=== PATIENT | male | born 1945 | race Caucasian/White ===

== ENCOUNTER 2016-11-02 05:59 | Day surgery (SDC) | payer BC, MEDICARE ==
[2016-10-29 12:37] VITALS: BMI 20.9
[2016-11-02 06:52] LABS: Aty Lym Flag Slight; CH 35.4; CHCM 35.4; HCT 46.6 % (39.0-53.0); HDW 2.47; HGB 16.1 gm/dL (13.0-17.5); MCH 34.8 pg (25.0-35.0); MCHC 34.6 g/dL (31.0-37.0); MCV 100.6 fL (80.0-100.0); Mean Platelet Volume 9.1; RBC 4.63 m/uL (4.30-5.90); RDW 12.9 % (11.5-15.5); WBC (Perox) 4.75
[2016-11-02 07:23] LABS: Add Differential Manual Differential
[2016-11-02] MEDS ORDERED: HYDROmorphone (PF) 1 MG/ML ONE (07:24)
[2016-11-02] MEDS ORDERED: ePHEDrine 50 MG/ML 1 ML AMP ONE (07:24)
[2016-11-02] MEDS ORDERED: LABETALOL 5 MG/ML VIAL MDV ONE (07:24)
[2016-11-02] MEDS ORDERED: MIDAZOLAM 2 MG/2 ML VIAL ONE (07:24)
[2016-11-02] MEDS ORDERED: PROPOFOL 10 MG/ML 20 ML VIAL IV ONE (07:24)
[2016-11-02] MEDS ORDERED: PHENYLEPHRINE-0.9% NACL SYG 1 MG/10 ML SYRINGE ONE (07:24)
[2016-11-02] MEDS ORDERED: HEPARIN SODIUM 1,000 UNIT/ML VIAL ONE (07:24)
[2016-11-02] MEDS ORDERED: fentaNYL (PF) 50 MCG/ML 2 ML AMP ONE (07:24)
[2016-11-02] MEDS ORDERED: SUCCINYLCHOLINE CHLORIDE 100 MG/5 ML SYR IV ONE (07:24)
[2016-11-02] MEDS ORDERED: HEPARIN SODIUM,PORCINE 5,000 UNIT/ML 1 ML VIAL ONE (07:24)
[2016-11-02] MEDS ORDERED: PROTAMINE SULFATE 10 MG/ML 5 ML VIAL IV ONE ×2 (07:24→10:55)
[2016-11-02 07:26] LABS: Nucleated Red Blood Cells 0 /100 WBC (0-0); Total Cells Counted 100
[2016-11-02 07:28] LABS: Large Platelets Present
[2016-11-02 07:29] LABS: Manual Review Performed
[2016-11-02] MEDS ORDERED: LIDOCAINE 2% INJ 20 MG/ML SQ ONE ×2 (08:03→08:05)
[2016-11-02] MEDS ORDERED: HEPARIN SODIUM,PORCINE/D5W PMX 25,000 UNIT in DEXTROSE/WATER 1 500ML.BAG IV ONE (08:15)
[2016-11-02] MEDS: SODIUM CHLORIDE 0.9% 1,000 ML IV SCH (11:02)
[2016-11-02] MEDS ORDERED: LACTATED RINGERS 1,000 ML IV ONE (11:02)
[2016-11-02] MEDS ORDERED: IOHEXOL 350 MG/ML 100 ML BOTTLE INJ ONE (11:04)
[2016-11-02] MEDS ORDERED: ACETAMINOPHEN IV (For NPO) 1,000 MG in EMPTY BAG 1 BAG IVPB ONE (11:37)
[2016-11-02] MEDS ORDERED: HYDROcodone/APAP 5-325MG 1 EACH TAB PO PRN (11:37)
--- NOTE | 2016-11-02 12:01 | P.PCN ---
Preoperative Diagnosis: Procedures performed ([facility] - CRYO Ablation) Invasive hemodynamic monitoring while general anesthesia, right femoral arterial line for monitoring and sampling Comprehensive diagnostic EP study with attempted arrhythmia induction CS pacing and recording Drug infusion Catheter the mapping of the tachycardia (NOT 3D mapping) Intracardiac echocardiography Pulmonary vein isolation with transseptal and comprehensive EPS, 10096 Electrical cardioversion, synchronized electrical cardioversion to sinus rhythm Procedure details Patient was brought to the EP lab in a fasting state. Written informed consent was obtained prior to the procedure. Procedure performed under general anesthesia After initial muscle relaxant use, muscle relaxants were not given thereafter in order to assess phrenic nerve during procedure Patient prepped and draped as per protocol Full cryo-set up with standard preparation of the cryoablation tools done Femoral Venous access obtained on the right and left groins Sheaths placed Diagnostic catheters for the high right atrium, phrenic nerve stimulation and pacing, His bundle, RV and coronary sinus placed Intracardiac echo catheter placed Long sheath placed in the right atrium Left and right transseptal catheterization performed under intracardiac echo guidance Intravenous heparin with aCT above 300 Later, catheter positioning and balloon positioning under intracardiac echo Baseline measurements Sinus cycle length 847 ms, QRS 97 ms, QT 4:30 milliseconds. AH 75, HV 50 Sinus node recovery times at 600 504 100 ms were 1070, 1078, 980 ms Comprehensive diagnostic EP study with drug infusion Atrial pacing performed from the high right atrium and the coronary sinus AV node Wenckebach block 360 him a VA Wenckebach block 390, AV node Wenckebach block from the coronary sinus 360 Transseptal catheterization performed RA pressure elevated at 15/7/11 LA pressure is awaited at 29/7/16 Transseptal catheterization performed with standard sheath. The cryoablation sheath was then placed with an over the wire exchange without any acute complications. All 4 pulmonary veins were isolated in the following sequence: Left superior followed by left inferior followed by right superior followed by right inferior The cryo-ablation balloon was placed at the os of each vein 1.5 mL of IV dye was injected to confirm an occluded vein Goal during cryoablation was to achieve -30C in the first 30 seconds. If not the balloon was repositioned to obtain this result After completion of Cryoblation with durations from 180-240 seconds, entrance block was confirmed with the Attain circular catheter in a roving fashion around the antrum of the pulmonary veins Phrenic nerve pacing was performed from the SVC, right innominate vein area and diaphragm voltage was monitored as well as manually Left superior pulmonary vein First cryoablation Duration of cryoablation lesion 180 seconds -30C achieved at 32 -40C achieved at 38 Minimum temperature achieved -52 Thaw time 22 Vein isolated yes Second cryoablation Duration of cryoablation lesion 120 -30C achieved at 24 -40C achieved at 33 Minimum temperature achieved minus 51 Thaw time17 Vein isolated yes Left inferior pulmonary vein First cryoablation Duration of cryoablation lesion 180 -30C achieved at 28 -40C achieved at 43 Minimum temperature achieved minus 51 Thaw time 12 Vein isolated yes Second cryoablation Duration of cryoablation lesion 120 -30C achieved at 27 -40C achieveFirst cryoablation 47 Minimum temperature achieved minus 42 Thaw time 10 Vein isolated yes Lowest temperature achieved on the CIRCA catheter was 24.8C Right superior pulmonary vein, during phrenic nerve pacing Second cryoablation Duration of cryoablation lesion 120 -30C achieved at 26 -40C achieved at 41 Minimum temperature achieved -51 Thaw time 18 Vein isolated First cryoablation Duration of cryoablation lesion on 180 -30C achieved at 26 -40C achieved at 40 Minimum temperature achieved -53 Thaw time 14 Vein isolated in 60 seconds Right inferior pulmonary vein, during phrenic nerve pacing First cryoablation Duration of cryoablation lesion 180 -30C achieved at 44 -40C achieved at Minimum temperature achieved -37C Thaw time 10 seconds Vein isolated yes Second cryoablation Duration of cryoablation lesion 120 seconds -30C achieved at 47 -40C achieved at 100 Minimum temperature achieved -40 Thaw time Vein isolated yes At the end of the procedure the Achieve catheter was once again used to check for entrance block Phrenic nerve stimulation was performed to confirm diaphragmatic stimulation the end of the procedure Cine fluoroscopy was performed at the very end of the procedure to confirm movement of both diaphragms with inspiration and expiration At the end of the procedure the patient was extubated Heparin was reversed Venous sheaths were removed and hemostasis assured Result Successful pulmonary vein isolation using cryo-ablation Complete entrance block in all 4 veins confirmed No evidence for phrenic nerve injury
[2016-11-02] MEDS ORDERED: FLECAINIDE 50 MG TAB PO SCH (12:15)
[2016-11-02] MEDS ORDERED: ACETAMINOPHEN IV (For NPO) 1,000 MG/100 ML VIAL IVPB ONE (12:19)
[2016-11-02 14:24] LABS: Anion Gap 8 mmol/L; Blood Urea Nitrogen 21 mg/dL (9-20); Calcium 9.4 mg/dL (8.4-10.2); Carbon Dioxide 26 mmol/L (22-30); Chloride 107 mmol/L (98-107); Glucose 87 mg/dL (74-99); Non-African American GFR(MDRD) >60 (>60 ml/min/1.73 sqM); Sodium 141 mmol/L (137-145)
[2016-11-02 14:26] LABS: Potassium 4.6 mmol/L (3.5-5.1)
[2016-11-02] MEDS: LACTATED RINGERS 1,000 ML IV SCH (15:20)
[2016-11-02] MEDS: FLECAINIDE 50 MG TAB PO SCH (17:40)
[2016-11-02] MEDS ORDERED: ACETAMINOPHEN TAB 325 MG TAB PO PRN (18:00)
[2016-11-02] MEDS: APIXABAN 5 MG TAB PO SCH (20:13)
[2016-11-03 00:11] VITALS: RESP 16
[2016-11-03] MEDS: LACTATED RINGERS 1,000 ML IV SCH (02:55)
[2016-11-03] MEDS: SODIUM CHLORIDE 0.9% 1,000 ML IV SCH (02:56)
[2016-11-03] MEDS: FLECAINIDE 50 MG TAB PO SCH (06:06)
[2016-11-03] MEDS: APIXABAN 5 MG TAB PO SCH (08:10)
[2016-11-03] MEDS ORDERED: ATORVASTATIN 10 MG TAB PO SCH (09:00)
[2016-11-03 12:47] VITALS: BP 120/80; PULSE 85; TEMP 98.1
== END 2016-11-03 13:47 | disposition home or self-care (01) ==
LOC: CATHEP 05:59 → 6SEL 10:54 → CATHEP 11-03 13:47
PROVIDERS: ATTEND Internal Medicine Clinical Cardiac Electrophysiology
DX: I48.0 Paroxysmal atrial fibrillation (principal); I49.5 Sick sinus syndrome; R94.31 Abnormal electrocardiogram [ECG] [EKG]; E78.5 Hyperlipidemia, unspecified; I10 Essential (primary) hypertension; Z79.01 Long term (current) use of anticoagulants; Z79.899 Other long term (current) drug therapy; Z88.0 Allergy status to penicillin; Z87.891 Personal history of nicotine dependence
CPT/HCPCS: 92960; 93623; 93662; 93609; 93656; 80048; 85025; C1894 ×3; C1769 ×2; C1730 ×4; C1759; C1893; C1733; C1766; J2001; J2250; J2720; J1644 ×3; Q9967; J3010; J1170; J0131; J2370; J0330; J2704

== ENCOUNTER 2016-11-03 16:32 | Observation (INO) | payer MEDICARE ==
[2016-11-03] MEDS ORDERED: FAMOTIDINE 20 MG/2 ML VIAL IV STA (17:28)
[2016-11-03] MEDS ORDERED: SODIUM CHLORIDE 0.9% 1,000 ML IV STA (17:29)
--- NOTE | 2016-11-03 17:32 | ED ---
Chest Pain HPI - General Chief Complaint: Chest Pain Stated Complaint: Chest Pain Time Seen by Provider: 11/03/16 17:00 Source: patient, RN notes reviewed Mode of arrival: wheelchair Limitations: no limitations - History of Present Illness Initial Comments: This is a 71-year-old male who had a cardiac ablation done yesterday for atrial fibrillation who presents with complaints of chest pain. He states it does increase with movement and deep breathing he denies any fevers chills or sweats he states it was 10/10 now it's a 10. He did talk to Dr. Carney who did instruct him to come the emergency department. Patient states the ablation was successful. Patient was to have an EKG echocardiogram and be admitted started on Pepcid and cold to seen. He denies any other complaints at this time MD Complaint: chest pain - Related Data Home Medications Medication Instructions Recorded Confirmed Apixaban [Eliquis] 5 mg PO BID 10/29/16 11/03/16 Multivit-Min/FA/Lycopen/Lutein 1 tab PO DAILY 10/29/16 11/03/16 [Centrum Silver Men Tablet] Simvastatin [Zocor] 20 mg PO DAILY 10/29/16 11/03/16 Previous Rx's Medication Instructions Recorded Atenolol 25 mg PO DAILY #1 tablet 11/03/16 Flecainide [Tambocor] 100 mg PO Q12HR #1 tablet 11/03/16 Allergies Allergy/AdvReac Type Severity Reaction Status Date / Time Penicillins Allergy Severe Swelling Verified 11/03/16 18:02 Review of Systems ROS Statement: Those systems with pertinent positive or pertinent negative responses have been documented in the HPI. ROS Other: All systems not noted in ROS Statement are negative. EKG Findings - EKG Results: EKG: interpreted by DANNY, sinus rhythm (Sinus rhythm rate 94. Interval 200 QRS duration 92 QT/QTC of 340/[address]-T wave changes) Past Medical History Past Medical History: Hyperlipidemia, Hypertension Additional Past Medical History / Comment(s): "Irregular heart beat" Hx precancerous cells on face. af ablation History of Any Multi-Drug Resistant Organisms: None Reported Past Surgical History: Ablation Past Anesthesia/Blood Transfusion Reactions: No Reported Reaction Additional Past Anesthesia/Blood Transfusion Reaction / Comment(s): "I have never had anesthesia" Past Psychological History: No Psychological Hx Reported Smoking Status: Former smoker Past Alcohol Use History: Occasional Additional Past Alcohol Use History / Comment(s): Smoked as a teenager. Past Drug Use History: None Reported - Past Family History Mother Family Medical History: Cancer General Exam - General Exam Comments Initial Comments: This is a well-developed well-nourished awake alert oriented times 3 male Limitations: no limitations General appearance: alert, anxious Head exam: Present: atraumatic, normocephalic, normal inspection Eye exam: Present: normal appearance, PERRL, EOMI. Absent: scleral icterus, conjunctival injection, periorbital swelling ENT exam: Present: normal exam, mucous membranes moist Neck exam: Present: normal inspection. Absent: tenderness, meningismus, lymphadenopathy Respiratory exam: Present: normal lung sounds bilaterally. Absent: respiratory distress, wheezes, rales, rhonchi, stridor Cardiovascular Exam: Present: regular rate, normal rhythm, normal heart sounds. Absent: systolic murmur, diastolic murmur, rubs, gallop, clicks GI/Abdominal exam: Present: soft, normal bowel sounds. Absent: distended, tenderness, guarding, rebound, rigid Extremities exam: Present: full ROM, normal capillary refill, other (The cath site in the right upper extremity demonstrates no evidence of infection or dehiscence). Absent: tenderness, pedal edema, joint swelling, calf tenderness Back exam: Present: normal inspection Neurological exam: Present: alert, oriented X3, CN II-XII intact Psychiatric exam: Present: normal affect, normal mood Skin exam: Present: warm, dry, intact, normal color. Absent: rash Course Vital Signs 11/03/16 11/03/16 11/03/16 16:40 17:42 18:59 Temperature 99.1 F 100.9 F H Pulse Rate 73 96 Respiratory 18 14 16 Rate Blood Pressure 178/116 176/98 167/107 O2 Sat by Pulse 96 98 99 Oximetry 11/03/16 19:12 Temperature Pulse Rate 96 Respiratory 18 Rate Blood Pressure 183/118 O2 Sat by Pulse 99 Oximetry Chest Pain MDM - [facility] Patient is feeling somewhat improved after the cold to seen. The pain is down from a 10 to a 6/10 patient will be admitted as per Dr. Singh with echocardiogram to be done. X-ray shows no evidence of acute findings. Disposition Clinical Impression: Pleurisy, Febrile, History of cardiac radiofrequency ablation, Atypical chest pain Disposition: ADMITTED IP TO THIS HOSP Condition: Stable
[2016-11-03] MEDS: COLCHICINE 0.6 MG TAB PO SCH (17:53)
[2016-11-03 17:56] LABS: Basophils % (A) 0 %; CH 35.7; CHCM 35.5; Eosinophils % (A) 0 %; HDW 2.48; HGB 15.3 gm/dL (13.0-17.5); Luc # (Auto) 0.14; Luc % (Auto) 1; Lymphocytes # (A) 0.6 k/uL (1.0-4.8); Lymphocytes % (A) 4 %; MCHC 34.7 g/dL (31.0-37.0); MCV 101.1 fL (80.0-100.0); Mean Platelet Volume 9.2; Monocytes # (A) 0.8 k/uL (0-1.0); Monocytes % (A) 5 %; Neutrophils # (A) 13.9 k/uL (1.3-7.7); Neutrophils % (A) 90 %; RBC 4.36 m/uL (4.30-5.90); RDW 12.7 % (11.5-15.5); WBC 15.4 k/uL (3.8-10.6); WBC (Perox) 14.64
--- NOTE | 2016-11-03 18:07 | XR ---
EXAMINATION TYPE: XR chest 2V DATE OF EXAM: 11/03/2016 5:59 PM COMPARISON: 03/24/2013 HISTORY: Cough and chest pain TECHNIQUE: Frontal and lateral views of the chest are obtained. FINDINGS: Heart and mediastinum are normal. There is slight blunting of left costophrenic angle. The re are no hilar masses. There are chest leads. Bony thorax appears intact. IMPRESSION: There is mild pleural reaction at the lateral left lung base. This appears increased com pared to old exam. Normal heart.
[2016-11-03 18:14] LABS: ALT 29 U/L (21-72); AST 43 U/L (17-59); Alkaline Phosphatase 58 U/L (38-126); Anion Gap 11 mmol/L; Blood Urea Nitrogen 17 mg/dL (9-20); Calcium 9.7 mg/dL (8.4-10.2); Carbon Dioxide 28 mmol/L (22-30); Chloride 102 mmol/L (98-107); Glucose 119 mg/dL (74-99); Magnesium 2.1 mg/dL (1.6-2.3); Non-African American GFR(MDRD) >60 (>60 ml/min/1.73 sqM); Potassium 3.7 mmol/L (3.5-5.1); Sodium 141 mmol/L (137-145); Total Bilirubin 0.9 mg/dL (0.2-1.3); Total Protein 7.6 g/dL (6.3-8.2)
[2016-11-03] MEDS ORDERED: KETOROLAC 30 MG/ML 1 ML VIAL IVP STA (19:47)
[2016-11-03] MEDS ORDERED: NALOXONE 0.4 MG/ML 1 ML VIAL IV PRN (19:56)
[2016-11-03] MEDS ORDERED: HYDROmorphone 1 MG/ML 1 ML SYRINGE IVP STA (19:59)
[2016-11-03 20:15] LABS: Appearance,Urine Clear (Clear); Bilirubin,Urine Negative (Negative); Glucose,Urine (UA) Negative (Negative); Ketones,Urine 1+ (Negative); Leukocyte Esterase,Urine Negative (Negative); Nitrite,Urine Negative (Negative); PH, Urine 5.5 (5.0-8.0); Protein,Urine Negative (Negative); Specific Gravity,Urine 1.017 (1.001-1.035); UA Billing (MACRO vs. MICRO) CHEM; Urobilinogen,Urine <2.0 mg/dL (<2.0)
[2016-11-03] MEDS ORDERED: LORazepam 2 MG/ML SYRINGE IV STA (20:46)
[2016-11-03] MEDS: FAMOTIDINE 20 MG TAB PO SCH (22:03)
[2016-11-03] MEDS: APIXABAN 5 MG TAB PO SCH (22:05)
[2016-11-03] MEDS: FLECAINIDE 50 MG TAB PO SCH (22:05)
[2016-11-03 22:31] VITALS: BMI 20.9
[2016-11-04] MEDS: COLCHICINE 0.6 MG TAB PO SCH (05:28)
[2016-11-04] MEDS ORDERED: CARVEDILOL 3.125 MG TAB PO SCH (07:45)
[2016-11-04 08:38] LABS: Basophils % (A) 0 %; CH 35.3; CHCM 35.4; Eosinophils # (A) 0.1 k/uL (0-0.7); Eosinophils % (A) 0 %; HCT 39.9 % (39.0-53.0); HDW 2.53; HGB 14.1 gm/dL (13.0-17.5); Luc # (Auto) 0.27; Luc % (Auto) 2; Lymphocytes % (A) 9 %; MCH 35.4 pg (25.0-35.0); MCHC 35.4 g/dL (31.0-37.0); Monocytes % (A) 9 %; Neutrophils # (A) 8.9 k/uL (1.3-7.7); Neutrophils % (A) 79 %; RBC 3.99 m/uL (4.30-5.90); RDW 12.6 % (11.5-15.5); WBC 11.3 k/uL (3.8-10.6); WBC (Perox) 11.48
[2016-11-04] MEDS ORDERED: ATENOLOL 25 MG TAB PO SCH (09:00)
[2016-11-04] MEDS ORDERED: ATORVASTATIN 10 MG TAB PO SCH (09:00)
[2016-11-04 09:49] VITALS: RESP 18
--- NOTE | 2016-11-04 10:30 | ECHOF ---
Referral Reason:Chest pain post cardiac ablation MEASUREMENTS -------- HEIGHT: 182.9 cm WEIGHT: 70.3 kg BP: 160/97 RVIDd: 3.0 cm (< 3.3) IVSd: 1.1 cm (0.6 - 1.1) LVIDd: 4.6 cm (3.9 - 5.3) LVPWd: 1.0 cm (0.6 - 1.1) IVSs: 1.5 cm LVIDs: 2.7 cm LVPWs: 2.0 cm LA Diam: 3.7 cm (2.7 - 3.8) LAESV Index (A-L): 47.38 ml/m Ao Diam: 3.9 cm (2.0 - 3.7) AV Cusp: 2.7 cm (1.5 - 2.6) MV EXCURSION: 17.245 mm (> 18.000) MV EF SLOPE: 72 mm/s (70 - 150) EPSS: 0.5 cm MV E Orion: 1.16 m/s MV DecT: 178 ms MV A Orion: 1.06 m/s MV E/A Ratio: 1.09 AR PHT: 643 ms RAP: 15.00 mmHg RVSP: 47.98 mmHg FINDINGS -------- Sinus rhythm with extra systolic beats. This was a technically good study. The left ventricular size is normal. Left ventricular wall thickness is normal. Overall left ventricular systolic function is normal with, an EF between 60 - 65 %. The right ventricle is normal in size and function. LA is severely dilated >40 ml/m2 The right atrium is normal in size. Possible PFO Post Radiofrequency Ablation, expected post procedure. The aortic valve is trileaflet and appears structurally normal. There is [id number] aortic regurgitation. The mitral valve leaflets are mildly thickened. Mild mitral annular calcification present. Moderate mitral regurgitation is present. Moderate tricuspid regurgitation present. There is moderate pulmonary hypertension. The right ventricular systolic pressure, as measured by Doppler, is 47.98mmHg. Trace/mild (physiologic) pulmonic regurgitation. The aortic root is mildy dilated. 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 The inferior vena cava is dilated with poor inspiratory collapse which is consistent with estimated right atrial pressure of 15 mmHg. There is no pericardial effusion. CONCLUSIONS -------- 1. Sinus rhythm with extra systolic beats. 2. There is [id number] aortic regurgitation. 3. The mitral valve leaflets are mildly thickened. 4. Mild mitral annular calcification present. 5. Moderate mitral regurgitation is present. 6. Moderate tricuspid regurgitation present. 7. There is moderate pulmonary hypertension. 8. The right ventricular systolic pressure, as measured by Doppler, is 47.98mmHg. 9. Trace/mild (physiologic) pulmonic regurgitation. 10. The aortic root is mildy dilated. 11. 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 12. This was a technically good study. 13. The inferior vena cava is dilated with poor inspiratory collapse which is consistent with estimated right atrial pressure of 15 mmHg. 14. There is no pericardial effusion. 15. The left ventricular size is normal. 16. Left ventricular wall thickness is normal. 17. Overall left ventricular systolic function is normal with, an EF between 60 - 65 %. 18. The right ventricle is normal in size and function. 19. LA is severely dilated >40 ml/m2 20. The right atrium is normal in size. 21. The aortic valve is trileaflet and appears structurally normal. PHOTO SPECIALIST: Sunita Stokes RDCS
[2016-11-04] MEDS: APIXABAN 5 MG TAB PO SCH (10:46)
[2016-11-04] MEDS: FAMOTIDINE 20 MG TAB PO SCH (10:46)
[2016-11-04] MEDS: FLECAINIDE 50 MG TAB PO SCH (10:47)
[2016-11-04] MEDS ORDERED: MULTIVITAMINS, THERA 1 EACH TAB PO SCH (12:00)
--- NOTE | 2016-11-04 12:09 | HP ---
DATE OF ADMISSION: Mr. Ramos is a 71-year-old male patient who was discharged yesterday after pulmonary vein isolation with cryoablation. He was pain free when I saw him yesterday morning and by the time he was discharged he was having very mild discomfort in the chest but was stable and left before 12 noon. Subsequently I got a call from him stating that he was having severe chest pain, shortness of breath and therefore he was sent to the emergency room for evaluation and possible admission. He was seen by Dr. Tavera and he was admitted for evaluation of pleuritic chest discomfort. The patient was complaining of severe discomfort when he took a deep breath to the point where he could not even breathe properly. He was short of breath and was quite uncomfortable. In addition, his blood pressure was quite high. His initial blood pressure upon admission here was 160/97 mmHg, 170/100 mmHg. He was in sinus rhythm upon arrival. His EKG showed sinus mechanism. Heart rate is 94 beats a minute. No definite ST segment abnormalities. His chest x-ray showed mild pleural reaction of the left lung base. No opacification of the lung quinteros. He denied any dizziness, palpitations. He was complaining of unable to breathe and taking and felt he was short of breath and did not get enough oxygen and was unable to take a deep breath because of severe pain. His medications included Eliquis, multivitamin, Zocor, atenolol and flecainide. Allergies to PENICILLIN. REVIEW OF SYSTEMS: No fever, chills, rigors. No cough or expectoration. No nausea, vomiting, or diarrhea. No hematuria or dysuria. No strokes or seizures. No skin lesions or musculoskeletal complaints. Past medical history of dyslipidemia and elevated blood pressure ( ) hypertension and persistent atrial fibrillation resistant to drug therapy, status post successful cryoablation of the pulmonary veins and status post cardioversion and initiation of flecainide 100 mg twice daily prior to discharge. SOCIAL HISTORY: Former smoker and history of alcohol use in the past. On exam this morning, his pain was much better. He was able to take a deep breath in. He was complaining of mild discomfort, but a lot better than yesterday. He was breathing more comfortably. He is lying comfortably in bed. His blood pressure is elevated at 149/104 mmHg, 160/97 mmHg and temperature was 99.1 degrees Fahrenheit. Head and neck examination is normal. Breath sounds are normal. No rhonchi. No crackles. Heart sounds S1, S2 are normal. I do not appreciate a rub. Abdomen is soft, nontender. Extremities are warm, no edema. His echo was reviewed, report was reviewed, and it does not show any pericardial effusion, a PFO is noted. He had transseptal procedure done the day before yesterday. A 15 [place] sheath was placed across the interatrial septum to access the left atrium. Labs are reviewed. His white count yesterday was 15.4. Hemoglobin is normal. Today the white count is 11.3. Electrolytes are normal. IMPRESSION: 1. Pleuritic chest discomfort, severe with shortness of breath and inability to take a breath. Patient was very uncomfortable yesterday and was admitted by in the emergency room. This morning he is much better on colchicine. He did get Dilaudid yesterday, but only a single dose. 2. Persistent atrial fibrillation, status post cryoablation and on flecainide now. 3. Hypertension. 4. Dyslipidemia. SUGGEST: 1. Colchicine 0.6 mg p.o. b.i.d. 2. Continue anticoagulation. 3. Continue flecainide. 4. Switch from atenolol to carvedilol and consider starting losartan 25 mg p.o. daily. He will follow up with Dr. Mata in about a week. I will also plan on CT of the chest with contrast to evaluate posterior mediastinum and the esophagus, but after about a week or so to make sure there is no injury to the esophagus. The lowest temperature recorded ( ) temperature monitoring catheter was 24.8 degrees Celsius when ablating the left-sided veins. FURTHER UPDATE: If his pain is much better this evening, I will discharge him today. This note will also serve as a discharge note and I will write an update at the time of discharge.
[2016-11-04 12:28] VITALS: BP 139/94
[2016-11-04 16:27] VITALS: PULSE 86; TEMP 99
--- NOTE | 2016-11-04 16:28 | P.DS ---
Providers Date of admission: 11/03/16 19:56 Attending physician: Arya Singh Primary care physician: Romulo Bryant [facility] Course: Patient is doing well. His pain is almost 90% better. He is able to breathe better. He is ablating the hallways. No groin problems Plan Discharge home Home blood pressure monitoring Colchicine Pepcid Carvedilol Anticoagulation Stop atenolol CT chest with contrast in about a week Follow-up with Dr. Lao the next day Patient Condition at Discharge: Stable Plan - Discharge Summary Discharge Medication List Apixaban [Eliquis] 5 mg PO BID 10/29/16 [History] Multivit-Min/FA/Lycopen/Lutein [Centrum Silver Men Tablet] 1 tab PO DAILY [History] Simvastatin [Zocor] 20 mg PO DAILY 10/29/16 [History] Atenolol 25 mg PO DAILY #1 tablet 11/03/16 [Rx] Flecainide [Tambocor] 100 mg PO Q12HR #1 tablet 11/03/16 [Rx] Follow up Appointment(s)/Referral(s): Romulo Benjamin MD [Primary Care Provider] - 1-2 days Activity/Diet/Wound Care/Special Instructions: Stop atenolol Start carvedilol 3.125 mg twice daily Home blood pressure monitor Computed tomography scan with contrast one day prior to seeing Dr. Lao
== END 2016-11-04 16:55 | disposition home or self-care (01) ==
LOC: EC 16:32 → 3OBS 19:56
PROVIDERS: ADMIT Internal Medicine Clinical Cardiac Electrophysiology; ATTEND Internal Medicine Clinical Cardiac Electrophysiology
DX: R07.81 Pleurodynia (principal); R06.02 Shortness of breath; R07.89 Other chest pain; E78.5 Hyperlipidemia, unspecified; I10 Essential (primary) hypertension; I48.1 Persistent atrial fibrillation; Z79.899 Other long term (current) drug therapy; Z79.01 Long term (current) use of anticoagulants; Z88.0 Allergy status to penicillin; Z87.891 Personal history of nicotine dependence
CPT/HCPCS: 96361 ×3; 96374; 96375; 99285; 36415; 93005; 93306; 80053; 83735; 85025 ×2; 81003; 71020; G0378 ×2; J2060; J1885; J1170

== ENCOUNTER 2016-11-11 17:04 | Observation (INO) | payer MEDICARE ==
[2016-11-11] MEDS ORDERED: ACETAMINOPHEN TAB 500 MG TAB PO STA (17:41)
[2016-11-11] MEDS ORDERED: SODIUM CHLORIDE 0.9% 1,000 ML IV STA ×2 (17:41)
[2016-11-11] MEDS ORDERED: IBUPROFEN 600 MG TAB PO STA (17:41)
--- NOTE | 2016-11-11 17:48 | ED ---
General Adult HPI - General Source: patient, RN notes reviewed, old records reviewed Mode of arrival: ambulatory Limitations: no limitations <Mo Rdz - Last Filed: 11/11/16 18:58> <Rush Tinoco - Last Filed: 11/11/16 21:53> - General Chief complaint: Recheck/Abnormal Lab/Rx Stated complaint: LIGHTHEADED, LOW BLOOD PRESSURE, PULSE HIGH Time Seen by Provider: 11/11/16 17:41 - History of Present Illness Initial comments: This is a 71-year-old male to the ER for evaluation of lightheadedness dizziness weakness, fever. Patient sates his heart rate and possible elevated. Feeling weak lightheaded and dizzy. Feels like he might pass out. No chest pain. No headache. No abdominal pain. No nausea vomiting or diarrhea. Patient has a complicated recent medical history where he went to ablation for A. fib with RVR. Since then he has not been feeling well from symptoms such as pain nausea weakness. Patient has been noted for left calf he feels like he is going in and out of A. fib and the problem is illegals and A. fib he is having significantly low blood pressures. These episodes of very symptomatic and he feels like he is given a passout. Patient's hospital record from low-grade fevers the last 2 weeks. He denies significant sore throat this time nausea vomiting or diarrhea, no abdominal pain. (Mo Rdz) - Related Data Home Medications Medication Instructions Recorded Confirmed Apixaban [Eliquis] 5 mg PO BID 10/29/16 11/11/16 Multivit-Min/FA/Lycopen/Lutein 1 tab PO DAILY 10/29/16 11/11/16 [Centrum Silver Men Tablet] Simvastatin [Zocor] 20 mg PO HS 10/29/16 11/11/16 Carvedilol [Coreg] 3.125 mg PO BID 11/04/16 11/11/16 Colchicine [Colcrys] 0.6 mg PO BID 11/04/16 11/11/16 Famotidine [Pepcid] 20 mg PO DAILY 11/04/16 11/11/16 Previous Rx's Medication Instructions Recorded Flecainide [Tambocor] 100 mg PO Q12HR #1 tablet 11/03/16 Allergies Allergy/AdvReac Type Severity Reaction Status Date / Time Penicillins Allergy Severe Swelling Verified 11/11/16 18:57 Review of Systems ROS Other: All systems not noted in ROS Statement are negative. <Mo Rdz - Last Filed: 11/11/16 18:58> ROS Other: All systems not noted in ROS Statement are negative. <Rush Tinoco - Last Filed: 11/11/16 21:53> ROS Statement: Those systems with pertinent positive or pertinent negative responses have been documented in the HPI. Past Medical History Past Medical History: Atrial Fibrillation, Hyperlipidemia, Hypertension Additional Past Medical History / Comment(s): Hx precancerous cells on face. ablation on 11/02/2016 for a fib History of Any Multi-Drug Resistant Organisms: None Reported Past Surgical History: Ablation Past Anesthesia/Blood Transfusion Reactions: No Reported Reaction Additional Past Anesthesia/Blood Transfusion Reaction / Comment(s): "I have never had anesthesia" Past Psychological History: No Psychological Hx Reported Smoking Status: Former smoker Past Alcohol Use History: Occasional Additional Past Alcohol Use History / Comment(s): Smoked as a teenager. Past Drug Use History: None Reported - Past Family History Mother Family Medical History: Cancer <Mo Rdz - Last Filed: 11/11/16 18:58> General Exam Limitations: no limitations General appearance: alert, in no apparent distress, anxious Head exam: Present: atraumatic, normocephalic, normal inspection Eye exam: Present: normal appearance, PERRL, EOMI. Absent: scleral icterus, conjunctival injection, periorbital swelling ENT exam: Present: normal exam, mucous membranes moist Neck exam: Present: normal inspection. Absent: tenderness, meningismus, lymphadenopathy Respiratory exam: Present: normal lung sounds bilaterally. Absent: respiratory distress, wheezes, rales, rhonchi, stridor Cardiovascular Exam: Present: regular rate, normal rhythm, normal heart sounds. Absent: systolic murmur, diastolic murmur, rubs, gallop, clicks GI/Abdominal exam: Present: soft, normal bowel sounds. Absent: distended, tenderness, guarding, rebound, rigid Extremities exam: Present: normal inspection, full ROM, normal capillary refill. Absent: tenderness, pedal edema, joint swelling, calf tenderness Back exam: Present: normal inspection Neurological exam: Present: alert, oriented X3, CN II-XII intact Psychiatric exam: Present: normal affect, normal mood Skin exam: Present: warm, dry, intact, normal color. Absent: rash <Mo Rdz - Last Filed: 11/11/16 18:58> EKG Findings - EKG Comments: EKG Findings:: EKG shows normal sinus rhythm rate of 79, para 28, QRS 90, QTC 447 <Mo Rdz - Last Filed: 11/11/16 18:58> Medical Decision Making - Lab Data Result diagrams: 11/11/16 18:15 11/11/16 18:15 <Mo Rdz - Last Filed: 11/11/16 18:58> - Lab Data Result diagrams: 11/11/16 18:15 11/11/16 18:15 <Rush Tinoco - Last Filed: 11/11/16 21:53> - Medical Decision Making Receive this patient has a sign out, pending the studies. I was given the understanding that the patient has been having fevers since his procedure, and that Dr. Weller And wanted him admitted for further evaluation and treatment. ( Rush Tinoco) - Lab Data Lab Results 11/11/16 11/11/16 11/11/16 Range/Units 18:15 18:15 18:15 WBC 13.0 H (3.8-10.6) k/uL RBC 4.36 (4.30-5.90) m/uL Hgb 15.4 (13.0-17.5) gm/dL Hct 42.1 (39.0-53.0) % MCV 96.6 (80.0-100.0) fL MCH 35.3 H (25.0-35.0) pg MCHC 36.5 (31.0-37.0) g/dL RDW 12.3 (11.5-15.5) % Plt Count 280 (150-450) k/uL Neutrophils % 70 % Lymphocytes % 19 % Monocytes % 7 % Eosinophils % 1 % Basophils % 0 % Neutrophils # 9.1 H (1.3-7.7) k/uL Lymphocytes # 2.5 (1.0-4.8) k/uL Monocytes # 0.9 (0-1.0) k/uL Eosinophils # 0.2 (0-0.7) k/uL Basophils # 0.0 (0-0.2) k/uL PT (9.0-12.0) sec INR (<1.1) APTT (22.0-30.0) sec Sodium 138 (137-145) mmol/L Potassium 4.9 (3.5-5.1) mmol/L Chloride 102 (98-107) mmol/L Carbon Dioxide 23 (22-30) mmol/L Anion Gap 13 mmol/L BUN 21 H (9-20) mg/dL Creatinine 0.90 (0.66-1.25) mg/dL Est GFR (MDRD) Af Amer >60 (>60 ml/min/1.73 sqM) Est GFR (MDRD) Non-Af >60 (>60 ml/min/1.73 sqM) Glucose 100 H (74-99) mg/dL Plasma Lactic Acid Kevin (0.7-2.0) mmol/L Calcium 9.7 (8.4-10.2) mg/dL Phosphorus 4.2 (2.5-4.5) mg/dL Magnesium 2.3 (1.6-2.3) mg/dL Total Bilirubin 0.9 (0.2-1.3) mg/dL AST 21 (17-59) U/L ALT 31 (21-72) U/L Alkaline Phosphatase 70 (38-126) U/L Total Creatine Kinase 42 L (55-170) U/L CK-MB (CK-2) 0.5 (0.0-2.4) ng/mL CK-MB (CK-2) Rel Index 1.2 Troponin I <0.012 (0.000-0.034) ng/mL Total Protein 7.2 (6.3-8.2) g/dL Albumin 4.2 (3.5-5.0) g/dL Urine Color Urine Appearance (Clear) Urine pH (5.0-8.0) Ur Specific [place] (1.001-1.035) Urine Protein (Negative) Urine Glucose (UA) (Negative) Urine Ketones (Negative) Urine Blood (Negative) Urine Nitrite (Negative) Urine Bilirubin (Negative) Urine Urobilinogen (<2.0) mg/dL Ur Leukocyte Esterase (Negative) 11/11/16 11/11/16 11/11/16 Range/Units 18:15 18:15 18:45 WBC (3.8-10.6) k/uL RBC (4.30-5.90) m/uL Hgb (13.0-17.5) gm/dL Hct (39.0-53.0) % MCV (80.0-100.0) fL MCH (25.0-35.0) pg MCHC (31.0-37.0) g/dL RDW (11.5-15.5) % Plt Count (150-450) k/uL Neutrophils % % Lymphocytes % % Monocytes % % Eosinophils % % Basophils % % Neutrophils # (1.3-7.7) k/uL Lymphocytes # (1.0-4.8) k/uL Monocytes # (0-1.0) k/uL Eosinophils # (0-0.7) k/uL Basophils # (0-0.2) k/uL PT 10.2 (9.0-12.0) sec INR 1.0 (<1.1) APTT 24.6 (22.0-30.0) sec Sodium (137-145) mmol/L Potassium (3.5-5.1) mmol/L Chloride (98-107) mmol/L Carbon Dioxide (22-30) mmol/L Anion Gap mmol/L BUN (9-20) mg/dL Creatinine (0.66-1.25) mg/dL Est GFR (MDRD) Af Amer (>60 ml/min/1.73 sqM) Est GFR (MDRD) Non-Af (>60 ml/min/1.73 sqM) Glucose (74-99) mg/dL Plasma Lactic Acid Kevin 1.1 (0.7-2.0) mmol/L Calcium (8.4-10.2) mg/dL Phosphorus (2.5-4.5) mg/dL Magnesium (1.6-2.3) mg/dL Total Bilirubin (0.2-1.3) mg/dL AST (17-59) U/L ALT (21-72) U/L Alkaline Phosphatase (38-126) U/L Total Creatine Kinase (55-170) U/L CK-MB (CK-2) (0.0-2.4) ng/mL CK-MB (CK-2) Rel Index Troponin I (0.000-0.034) ng/mL Total Protein (6.3-8.2) g/dL Albumin (3.5-5.0) g/dL Urine Color Light Yellow Urine Appearance Clear (Clear) Urine pH 5.0 (5.0-8.0) Ur Specific [place] 1.002 (1.001-1.035) Urine Protein Negative (Negative) Urine Glucose (UA) Negative (Negative) Urine Ketones Negative (Negative) Urine Blood Negative (Negative) Urine Nitrite Negative (Negative) Urine Bilirubin Negative (Negative) Urine Urobilinogen <2.0 (<2.0) mg/dL Ur Leukocyte Esterase Negative (Negative) Disposition <Mo Rdz - Last Filed: 11/11/16 18:58> <Rush Tinoco - Last Filed: 11/11/16 21:53> Clinical Impression: Fever, Leukocytosis Disposition: ADMITTED IP TO THIS HOSP Condition: Fair Referrals: Romulo Benjamin MD [Primary Care Provider] - 1-2 days
[2016-11-11 18:27] LABS: Basophils % (A) 0 %; CHCM 36.4; Eosinophils # (A) 0.2 k/uL (0-0.7); Eosinophils % (A) 1 %; HCT 42.1 % (39.0-53.0); HDW 2.83; HGB 15.4 gm/dL (13.0-17.5); Luc # (Auto) 0.36; Luc % (Auto) 3; Lymphocytes # (A) 2.5 k/uL (1.0-4.8); Lymphocytes % (A) 19 %; MCH 35.3 pg (25.0-35.0); MCHC 36.5 g/dL (31.0-37.0); MCV 96.6 fL (80.0-100.0); Mean Platelet Volume 8.6; Monocytes # (A) 0.9 k/uL (0-1.0); Monocytes % (A) 7 %; Neutrophils # (A) 9.1 k/uL (1.3-7.7); Neutrophils % (A) 70 %; RBC 4.36 m/uL (4.30-5.90); RDW 12.3 % (11.5-15.5)
[2016-11-11 18:48] LABS: ALT 31 U/L (21-72); AST 21 U/L (17-59); Alkaline Phosphatase 70 U/L (38-126); Anion Gap 13 mmol/L; Calcium 9.7 mg/dL (8.4-10.2); Carbon Dioxide 23 mmol/L (22-30); Chloride 102 mmol/L (98-107); Glucose 100 mg/dL (74-99); Magnesium 2.3 mg/dL (1.6-2.3); Non-African American GFR(MDRD) >60 (>60 ml/min/1.73 sqM); Phosphorous 4.2 mg/dL (2.5-4.5); Sodium 138 mmol/L (137-145); Total Bilirubin 0.9 mg/dL (0.2-1.3); Total Protein 7.2 g/dL (6.3-8.2)
[2016-11-11 18:52] LABS: Blood Urea Nitrogen 21 mg/dL (9-20); Potassium 4.9 mmol/L (3.5-5.1)
[2016-11-11 18:54] LABS: Appearance,Urine Clear (Clear); Bilirubin,Urine Negative (Negative); Glucose,Urine (UA) Negative (Negative); Ketones,Urine Negative (Negative); Leukocyte Esterase,Urine Negative (Negative); Nitrite,Urine Negative (Negative); Protein,Urine Negative (Negative); Specific Gravity,Urine 1.002 (1.001-1.035); UA Billing (MACRO vs. MICRO) CHEM; Urobilinogen,Urine <2.0 mg/dL (<2.0)
[2016-11-11 18:56] LABS: Partial Thromboplastin Time 24.6 sec (22.0-30.0); Prothrombin Time 10.2 sec (9.0-12.0)
[2016-11-11 19:10] LABS: Creatine Kinase MB 0.5 ng/mL (0.0-2.4); Troponin I <0.012 ng/mL (0.000-0.034)
[2016-11-11 19:17] LABS: Creatine Kinase 42 U/L (55-170)
--- NOTE | 2016-11-11 19:55 | XR ---
EXAMINATION TYPE: XR chest 2V DATE OF EXAM: 11/11/2016 7:13 PM COMPARISON: November 03, 2016 HISTORY: Weakness TECHNIQUE: Frontal and lateral views of the chest are obtained. FINDINGS: There is interval resolution of the previously noted blunting of the left lateral costophr enic angle. Only, the lungs appear clear and well expanded bilaterally. The pleural spaces are negati ve. No focal air space opacity, pleural effusion, or pneumothorax. The cardiac silhouette size is wi thin normal limits. The osseous structures are intact. IMPRESSION: NO ACUTE PROCESS.
[2016-11-11] MEDS ORDERED: NALOXONE 0.4 MG/ML 1 ML VIAL IV PRN (21:46)
[2016-11-11] MEDS: SODIUM CHLORIDE 0.9% 1,000 ML IV SCH (21:50)
[2016-11-11 22:36] VITALS: BMI 20.9
[2016-11-12] MEDS: SODIUM CHLORIDE 0.9% 1,000 ML IV SCH (01:11)
[2016-11-12] MEDS: FAMOTIDINE 20 MG TAB PO SCH (08:37)
[2016-11-12] MEDS: APIXABAN 5 MG TAB PO SCH ×2 (08:38→21:23)
[2016-11-12] MEDS: CARVEDILOL 3.125 MG TAB PO SCH ×2 (08:38→17:36)
[2016-11-12] MEDS: FLECAINIDE 50 MG TAB PO SCH ×2 (08:38→21:23)
[2016-11-12] MEDS: COLCHICINE 0.6 MG TAB PO SCH ×2 (08:38→21:22)
[2016-11-12] MEDS ORDERED: RX INFO: IV CONTRAST WAS GIVEN 1 EACH MISC MISCELLANE PRN (14:30)
--- NOTE | 2016-11-12 15:28 | CT ---
EXAMINATION TYPE: CT angio chest DATE OF EXAM: 11/12/2016 3:15 PM COMPARISON: Correlation radiograph 11/11/2016 HISTORY: 71 year-old male history of atrial fibrillation ablation (11-02-16), looking for air in medias tinum. TECHNIQUE: Contiguous axial scanning of the chest performed without and with IV Contrast, patient inj ected with 100 mL of Omnipaque 350. Coronal/sagittal MIP reconstructions performed. 3-D reconstructio ns generated on a dedicated independent workstation. CT DLP: 431.20 mGycm Automated exposure control for dose reduction was used. FINDINGS: The heart is normal size without pericardial effusion. Coronary vessel calcifications are present in remarkable for coronary artery disease. There is aneurysm of the ascending aorta measuring up to 4.8 cm. Mild atherosclerotic arch calcificat ions with conventional arch vessel branching anatomy. Additional borderline aneurysm upper descending thoracic aorta at 3.1 cm. Noncontrast series shows no evidence for acute intramural hematoma. No large central or lobar pulmonary embolus. No thoracic lymphadenopathy or pneumomediastinum. Prominent bands of atelectasis in the lung bases. No consolidation, pneumothorax, or pleural effusion . Visualized upper abdomen shows no gross abnormality. Bones: No osseous destructive process. IMPRESSION: 1. NO EVIDENCE FOR PNEUMOMEDIASTINUM. 2. ASCENDING AORTIC ANEURYSM AT 4.8 CM. APPROPRIATE FOLLOW-UP RECOMMENDED. BORDERLINE ANEURYSM UPPER DESCENDING THORACIC AORTA AT 3.1 CM. 3. PROMINENT BANDS OF BIBASILAR ATELECTASIS.
[2016-11-12] MEDS: MULTIVITAMINS, THERA 1 EACH TAB PO SCH (15:52)
--- NOTE | 2016-11-12 19:33 | HP ---
DATE OF ADMISSION: 11/11/2016 PRESENTING COMPLAINT: Not feeling well. HISTORY OF PRESENTING COMPLAINT: This is a pleasant 71-year-old patient of Dr. Romulo Benjamin who was in the hospital on 11/02/16, underwent pulmonary vein isolation with cryoablation for atrial fibrillation by Dr. Singh. Discharged on 11/03/16. When he went home, patient developed sharp chest pain, could not breathe; was readmitted. Subsequently he was discharged on 11/04. [place] with [place] , did some ( ), was really feeling good. Patient then for the last 2 days was not feeling well. He took his blood pressure and noted it to be down to 91/63. He states he felt a bit ( ) flu-like, just tired, rundown; achiness in the muscles, some runny nose. Hence he decided to come in. No palpitations. REVIEW OF SYSTEMS: CONSTITUTIONAL: Tired, rundown. HEENT: Some nasal congestion. RESPIRATORY: As above. CARDIOVASCULAR: As above. GASTROINTESTINAL: None. GENITOURINARY: None. MUSCULOSKELETAL: Some achiness in the muscles. DERMATOLOGIC: None. HEMATOLOGIC: None. LYMPHATICS: None. PSYCHIATRY: None. NEUROLOGICAL: None. PAST MEDICAL HISTORY: 1. Atrial fibrillation. 2. Hyperlipidemia. 3. Hypertension. 4. Some precancerous cells on the face. PAST SURGICAL HISTORY: Pulmonary vein isolation with cryoablation for atrial flutter/fibrillation on 11/02/16. SOCIAL HISTORY: Does not smoke. . FAMILY HISTORY: Skin cancer. HOME MEDICATIONS: 1. Zocor 20 mg at bedtime. 2. Centrum Silver Men's 1 tablet p.o. daily. 3. Tambocor 100 mg p.o. q.12. 4. Coreg 3.125 mg p.o. b.i.d. 5. Eliquis 5 mg p.o. b.i.d. ALLERGIES: PENICILLIN. On examination, temperature 99.1, pulse 102, respiration 20, blood pressure 122/81, pulse ox 97% on 2 L. GENERAL APPEARANCE: Well built. Sitting up. Comfortable. EYES: Pupils equal. Conjunctivae normal. HEENT: External appearance of nose and ears normal. Oral cavity normal. NECK: JVD not raised. Mass not palpable. RESPIRATORY: Effort normal. Lungs are clear. CARDIOVASCULAR: First and second sounds normal. No edema. ABDOMEN: Soft, nontender. Liver and spleen not palpable. LYMPHATIC: No lymph node palpable in neck or axillae. PSYCHIATRY: Alert and oriented x3. Mood and affect normal. NEUROLOGICAL: Pupils equal. Cranial nerves grossly intact. Power and sensation grossly intact. INVESTIGATIONS: White count 13, hemoglobin 15.4. Potassium 4.9. BUN 21, creatinine 0.90. UA negative. EKG shows normal sinus rhythm, rate controlled. Chest x-ray reported to be negative. ASSESSMENT: 1. This is a patient who recently had pulmonary vein isolation with cryoablation; presented with feeling weak, tired, some achiness in the muscles, slight nasal stuffiness. This could be oral viral syndrome. Patient did record a low blood pressure at home. This could be a wrong reading, given that all of patient's blood pressure readings here are really good, without actually enough fluid supplement. In the meantime will get an opinion from Dr. Singh, who performed an intervention on the patient recently. 2. Essential hypertension. 3. Hyperlipidemia. PLAN: Patient's home medications will be reviewed. Encouraged to take his oral intake. Will keep an eye on patient for 24 hours to make sure things are fine. Spoke to Dr. Singh. He wants to order a CT scan of the chest. Will do the same. Patient is already anticoagulated with Eliquis. Care was discussed with the patient.
[2016-11-12] MEDS ORDERED: ATORVASTATIN 10 MG TAB PO SCH (21:00)
[2016-11-13 04:11] VITALS: RESP 16
[2016-11-13] MEDS: APIXABAN 5 MG TAB PO SCH (08:16)
[2016-11-13] MEDS: CARVEDILOL 3.125 MG TAB PO SCH (08:16)
[2016-11-13] MEDS: FLECAINIDE 50 MG TAB PO SCH (08:16)
[2016-11-13] MEDS: MULTIVITAMINS, THERA 1 EACH TAB PO SCH (08:16)
[2016-11-13] MEDS ORDERED: ACETAMINOPHEN TAB 500 MG TAB PO STA (08:18)
[2016-11-13] MEDS: COLCHICINE 0.6 MG TAB PO SCH (08:53)
[2016-11-13] MEDS: FAMOTIDINE 20 MG TAB PO SCH (08:53)
--- NOTE | 2016-11-13 09:11 | CONS ---
DATE OF CONSULTATION: Edmund Ramos came into the hospital because he was not feeling well. He was dizzy, lightheaded, and found that his blood pressure was low upon admission, his blood pressure was in normal. He thought he was coming down with flu-like syndrome. His white count is mildly elevated, but he is afebrile. REVIEW OF SYSTEMS: No fevers, chills, rigors. He feels tired. He feels rundown and had some nasal congestion. No cough. No expectoration. No nausea, vomiting, or diarrhea. No hematuria or dysuria. No strokes or seizures. His muscles are achy. Past medical history of atrial fibrillation, paroxysmal, status post cryoablation of the pulmonary veins, dyslipidemia, possible hypertension. PAST SURGICAL HISTORY: Cryoablation of the pulmonary veins. SOCIAL HISTORY: Nonsmoker. History of alcohol use in the past has discontinued. Home medications: 1. Zocor. 2. Flecainide 100 mg twice a day. 3. Coreg 3.125 mg twice daily. 4. Eliquis 5 mg twice daily. ALLERGIES TO PENICILLIN. On examination, his blood pressure was normal at 122/81 mmHg on admission. Heart rate is in the normal range. He was in sinus rhythm. Head and neck examination is normal. No JVD, thyromegaly, carotid bruits. Heart sounds are normal. No murmurs or gallops. Breath sounds are clear. No rhonchi. No crackles. ABDOMEN: Soft, nontender. EXTREMITIES: Warm. No edema. A 12-lead ECG showed sinus rhythm with normal cardiac intervals, normal ST segments. Labs are reviewed. Cardiac enzymes are normal. Electrolytes are normal. White count is 13.0. He is afebrile at 98.5 [address]. He underwent CT of the chest that is previously planned as an outpatient but he never was able to get a CT of the chest because he came to the hospital and this did not show any evidence of esophageal injury post ablation. No evidence for pneumomediastinum. He is doing well this morning and should be able to go home today. I instructed him to reduce the dose of carvedilol if he documented low blood pressure once again below 100 mmHg systolic along with symptoms of dizziness. FINAL IMPRESSION: 1. Paroxysmal atrial fibrillation status post cryoablation. 2. Dyslipidemia. 3. Hypotension. 4. Possible dehydration. 5. Possible iatrogenic secondary to medications. He will see Dr. Mata next week.
[2016-11-13 11:38] VITALS: BP 143/94; PULSE 79; TEMP 98.2
--- NOTE | 2016-11-13 20:24 | DS ---
DATE OF ADMISSION: 11/11/2016 DATE OF DISCHARGE: 11/13/2016 FINAL DIAGNOSES: 1. Acute viral syndrome, present on admission. 2. Essential hypertension. 3. Hyperlipidemia. HOSPITAL COURSE: This patient presented with some muscle achiness and runny nose, tired, and rundown. Patient recently had a pulmonary vein isolation with cryoablation of atrial fibrillation by Dr. Singh. Did talk to Dr. Singh, CT of the chest was negative. Also CT was done for PE protocol that was negative. The patient doing much better, up and about at the time of discharge, afebrile. Eating well. Feeling really good. UA is negative. This patient being discharged. CONSULTATION: Dr. Singh from cardiology. On exam, lungs are clear. CARDIOVASCULAR: First and second seconds normal. DISCHARGE MEDICATIONS: 1. Eliquis 5 mg p.o. b.i.d. 2. Centrum Silver 1 tablet p.o. daily. 3. Zocor 20 mg q.h.s. 4. Tambocor 100 mg p.o. q.12. 5. Coreg 3.125 mg p.o. b.i.d. Follow up with Dr. Singh as per schedule. Dr. Romulo Benjamin in one week.
== END 2016-11-13 13:52 | disposition home or self-care (01) ==
LOC: EC 17:04 → 3OBS 21:47 → 3SUR 11-12 19:00
PROVIDERS: ADMIT Hospitalist; ATTEND Hospitalist
DX: B34.9 Viral infection, unspecified (principal); I10 Essential (primary) hypertension; E78.5 Hyperlipidemia, unspecified; I48.0 Paroxysmal atrial fibrillation; I95.9 Hypotension, unspecified; Z79.01 Long term (current) use of anticoagulants; Z79.899 Other long term (current) drug therapy; Z88.0 Allergy status to penicillin; Z87.891 Personal history of nicotine dependence; Z80.8 Family history of malignant neoplasm of other organs or systems; I48.92 Unspecified atrial flutter
CPT/HCPCS: 96360; 96361 ×2; 99285; 36415; 93005; 80053; 82550; 82553; 83605; 83735; 84100; 84484; 85025; 85610; 85730; 81003; 87040; 87086; 71020; 71275; G0378 ×3; Q9967

== ENCOUNTER → 2017-11-22 | Outpatient (CLI) | payer MEDICARE ==
[2017-11-22 11:21] LABS: Blood Urea Nitrogen 17 mg/dL (9-20)
--- NOTE | 2017-11-22 13:48 | CT ---
EXAMINATION TYPE: CT ChestAbdPelvis w con DATE OF EXAM: 11/22/2017 COMPARISON: CTA aorta November 12, 2016. HISTORY: Aortic aneurysm progress study. CT DLP: 1525 mGycm. Automated Exposure Control for Dose Reduction was Utilized. CONTRAST: CT scan of the thorax, abdomen and pelvis is performed without oral but with IV Contrast, patient inj ected with 100 ml mL of Isovue 300. Three-D reconstructed images are created on independent workstati on and reviewed FINDINGS: VASCULAR: Ascending aortic aneurysm measures up to 4.8 cm in diameter axial image 35 not significantl y changed from prior. There is mild calcified plaque in the ascending aorta and aortic arch with mild calcified plaque extension into 3 great vessels redemonstrated. There is mild calcified plaque in th e descending aorta. There is more moderate calcified plaque in the infrarenal abdominal aorta. There is focal moderate to severe mixed plaque in the right common iliac artery axial image 93 with stenosi s under 50% present. There is additional mild to moderate calcified plaque in the common and internal iliac arteries bilaterally. There is no significant plaque or stenosis in common, deep, and superfic ial femoral arteries in the bilateral groin. No linear hypodensity to suggest dissection is present. LUNGS: The lungs are grossly clear, there is no concerning parenchymal mass or nodule identified. T here is no pleural effusion or pneumothorax seen. The tracheobronchial tree is patent. MEDIASTINUM: There are no greater than 1 cm hilar or mediastinal lymph nodes. No cardiomegaly or pe ricardial effusion is seen. Coronary artery calcification is redemonstrated which is noted marker fo r coronary artery disease. OTHER: No additional significant abnormality is seen. LIVER/GB: No significant abnormality is appreciated. PANCREAS: No significant abnormality is seen. SPLEEN: No significant abnormality is seen. ADRENALS: No significant abnormality is seen. KIDNEYS: No significant abnormality is seen. BOWEL: No significant abnormality is seen. GENITAL ORGANS: Central zone calcifications are seen in normal size prostate gland. LYMPH NODES: No greater than 1cm abdominal or pelvic lymph nodes are appreciated. OSSEOUS STRUCTURES: There is vacuum disc phenomenon and disc space narrowing in the lower lumbar spin e. OTHER: No significant additional abnormality is seen. IMPRESSION: Stable 4.8 cm aneurysm of the ascending aorta.
== END | disposition home or self-care (01) ==
LOC: RADCTMAIN 10:23
PROVIDERS: ATTEND Surgery
DX: I71.2 Thoracic aortic aneurysm, without rupture (principal)
CPT/HCPCS: 82565; 84520; 71260; 74177; 36415; Q9967

== ENCOUNTER → 2018-11-24 | Outpatient (CLI) | payer MEDICARE ==
[2018-11-24 10:43] LABS: Blood Urea Nitrogen 18 mg/dL (9-20)
--- NOTE | 2018-11-24 11:29 | CT ---
EXAMINATION TYPE: CT angio chest DATE OF EXAM: 11/24/2018 COMPARISON: 11/22/2017 HISTORY: Follow up aneurysm per patient. CT DLP: 393 mGycm CONTRAST: CTA thoracic aorta with 3-D reconstruction is performed and with IV Contrast, patient injected with 1 00 mL of Isovue 370. Contrast CTA of the thoracic aorta was performed from the lung apex through the upper abdomen. 3D re construction imaging obtained at a separate workstation. CT Chest: THORACIC AORTA: Ascending thoracic aortic aneurysm currently measures 4.8 cm AP dimension versus 4.8 cm previously. Mild atheromatous changes seen. There is no evidence for dissection or periaortic col lection. LUNGS: The lungs are clear and free of infiltrate or atelectasis. No pulmonary nodule or mass is det ected. No pleural effusion or CT evidence of interstitial lung disease. MEDIASTINUM: No evidence for mediastinal hematoma. The heart is not enlarged. No evidence for med iastinal mass or adenopathy. HILAR STRUCTURES: No evidence for mass. No hilar adenopathy is appreciated. OTHER: No significant abnormality. IMPRESSION- Ascending thoracic aortic aneurysm currently measures 4.8 cm AP dimension versus 4.8 cm previously.
== END | disposition home or self-care (01) ==
LOC: RADCTMAIN 10:05
PROVIDERS: ATTEND Surgery
DX: I71.2 Thoracic aortic aneurysm, without rupture (principal)
CPT/HCPCS: 82565; 84520; 71275; 36415; Q9967

== ENCOUNTER → 2020-03-24 | Outpatient (CLI) | payer MEDICARE ==
--- NOTE | 2020-03-24 09:44 | CT ---
EXAMINATION TYPE: CT chest wo con DATE OF EXAM: 03/24/2020 COMPARISON: 11/24/2018 HISTORY: Follow up aneurysm CT DLP: 460 mGycm. Automated Exposure Control for Dose Reduction was Utilized. TECHNIQUE: CT scan of the thorax is performed without IV contrast. FINDINGS: LUNGS: The lungs are grossly clear, there is no concerning parenchymal mass or nodule identified. T here is no pleural effusion or pneumothorax seen. The tracheobronchial tree is patent. Subsegmental linear changes are most typical of scar or atelectasis 2 mm right upper lobe subpleural nodule image 36 is too small to characterize MEDIASTINUM: Lack of IV contrast is noted to limit evaluation for mediastinal and especially hilar ad enopathy. There are no definitive greater than 1 cm hilar or mediastinal lymph nodes. There is 5.1 x 5.1 cm proximal ascending aortic aneurysm. The aortic root measures 5.1 x 5.6 cm. Coronary artery ca lcification noted. OTHER: Hypertrophic and degenerative change of the spine. Tiny hypodensity within the dome of the maryam er is too small to characterize. IMPRESSION: 1. Ascending aortic aneurysm with maximal dimension at the level aortic root measuring 5.1 x 5.6 cm. This is increased in size from prior exam where retrospectively measured approximately 4.9 x 5.4 cm.
== END | disposition home or self-care (01) ==
LOC: RADCTMAIN 07:57
PROVIDERS: ATTEND Surgery
DX: I71.2 Thoracic aortic aneurysm, without rupture (principal)
CPT/HCPCS: 71250

== ENCOUNTER → 2021-03-17 | Outpatient (CLI) | payer MEDICARE ==
[2021-03-17 13:20] LABS: African American GFR (CKD) >90 (>60 ml/min/1.73 sqM); Blood Urea Nitrogen 15 mg/dL (9-20); Non-African American GFR(CKD) >90 (>60 ml/min/1.73 sqM)
--- NOTE | 2021-03-17 14:51 | CT ---
EXAMINATION TYPE: CT angio chest DATE OF EXAM: 03/17/2021 2:10 PM COMPARISON: Most recent CT March 24, 2020 and older CTs HISTORY: Follow up aneurysm CT DLP: 214.3 mGycm Automated exposure control for dose reduction was used. CONTRAST: CTA scan of the thorax is performed with IV Contrast, patient injected with 100 mL of Isovue 370, ane urysm protocol. 3D reconstructed images are created on an independent workstation and reviewed.. FINDINGS: LUNGS: The lungs remain grossly clear, there is no concerning parenchymal mass or nodule identified. There is no pleural effusion or pneumothorax seen. The tracheobronchial tree is patent. MEDIASTINUM: There is satisfactory enhancement of the central pulmonary arteries. Ascending aortic an eurysm up to 5.3 cm near root axial image 38 and measuring 4.9 cm at level of right pulmonary artery axial image 33 with some extension into the aortic arch is redemonstrated. No extension into descendi ng aorta. Mild to moderate peripheral plaque without significant stenosis. There are no greater than 1 cm hilar or mediastinal lymph nodes. No new pericardial effusion is seen. Coronary artery calcifi cation is redemonstrated. OTHER: Slight underlying scoliotic curvature. IMPRESSION: Ascending aortic aneurysm into arch up to 5.3 cm on current study not significantly llanes ed from most recent CT.
== END | disposition home or self-care (01) ==
LOC: RADCTMAIN 12:47
PROVIDERS: ATTEND Surgery
DX: I71.2 Thoracic aortic aneurysm, without rupture (principal)
CPT/HCPCS: 82565; 84520; 71275; 36415; Q9967